=== PATIENT | female | born 1970 | race Caucasian/White ===

== ENCOUNTER → 2017-02-28 | Outpatient (CLI) | payer OTHER ==
[~2017-02-28] MED LIST: ALEVE; TRAMADOL 50 MG50 MG PO; ULTRAM 50MG TAB50 MG PO; VITAMIN D400 UNI1 PO; ZANTAC 150MG T150 M1 PO; [UNRECOGNIZED DRUG - OTHER] TP
== END ==
LOC: RAD 08:14
DX: Z12.31 Encounter for screening mammogram for malignant neoplasm of breast (principal)

== ENCOUNTER → 2021-03-17 | Outpatient (CLI) | payer OTHER | LOC: BC 15:28 | PROVIDERS: ATTEND Internal Medicine Hematology & Oncology | DX: Z12.31 Encounter for screening mammogram for malignant neoplasm of breast (principal) ==